=== PATIENT | female | born 1980 | race American Indian/Alaskan Native ===

== ENCOUNTER 2016-05-16 12:10 | Emergency (ER) | payer MEDICAID ==
[~2016-05-16] VITALS: Ht 154.9 cm; Wt 59.4 kg
[2016-05-16 12:15] VITALS: BP 107/65
== END 2016-05-16 13:49 | disposition home or self-care (01) ==
LOC: ED 13:43
DX: Z48.02 Encounter for removal of sutures (principal); B19.20 Unspecified viral hepatitis C without hepatic coma; F17.210 Nicotine dependence, cigarettes, uncomplicated
CPT/HCPCS: 99281